=== PATIENT | male | born 1980 | race Asian ===

== ENCOUNTER 2025-01-04 10:44 | Emergency (ER) | payer BC, SELFPAY ==
[2025-01-04 10:45] VITALS: BMI 38.2
[2025-01-04 11:07] VITALS: BP 164/97; PULSE 82; RESP 18; TEMP 37.1; O2SAT 95
--- NOTE | 2025-01-04 11:17 | XR_ITS ---
Examination: Duplex scan of the lower extremity, unilateral left Date and time of exam: January 04, 2025, 1243 hrs. Indications: Left ankle swelling and pain beginning 2 days ago. Technique: Duplex scan of the extremity veins using B-mode/grayscale imaging and Doppler spectral analysis and color flow Attention is directed to internal echogenicity, compression and augmentation involving these veins, color flow assessment, spectral analysis Findings: Major deep venous structures in the extremity demonstrate normal course and caliber. There is no evidence of deep vein thrombosis. Normal color flow and spectral analysis Impression: Negative for DVT..
--- NOTE | 2025-01-04 11:17 | XR_ITS ---
EXAMINATION: Ankle, left 3 views . Technique: Ankle AP, oblique, lateral 3 views Date and time of exam: January 04, 2025, 1204 hrs. Indications: Ankle swelling and pain beginning 2 days ago. Findings: No fracture or dislocation. No cortical bone destruction. Impression: No fracture or dislocation.
[2025-01-04 12:11] LABS: Uric Acid 6.9 mg/dL (3.7-9.2)
[2025-01-04 13:32] VITALS: BP 187/101; PULSE 76; RESP 19; TEMP 36.6; O2SAT 100
[2025-01-04] MEDS: HYDROcodone/APAP 5/325 TABLET 1 TAB PO (14:14)
[2025-01-04] MEDS: KETOROLAC INJ 60 MG/2 ML VIAL 30 MG IM (14:15)
--- NOTE | 2025-01-04 15:16 | PD.EDLOWEX ---
Lower Extremity Injury RME/HPI General Chief Complaint: Extremity Injury, Lower Stated Complaint: POSSIBLE DVT ON L ANKLE & R/O FRACTURE Time Seen by Provider: 01/04/25 10:47 Arrival date/time: 01/04/25 10:44 This is a case of 44-year-old male with no medical history came in in the emergency room due to left ankle pain and swelling for 3 days worsening of the symptoms this patient sought consult to PCP and was sent here for possible DVT patient denies any injury or trauma patient swelling extends to the distal left lower leg no other symptoms noted no redness Limitations: no limitations Related Data Home Medications ?Medication ?Instructions ?Recorded ?Confirmed chlorthalidone 25 mg tablet 25 mg PO DAILY 01/26/23 08/23/23 rosuvastatin 20 mg tablet 20 mg PO QDAY 01/26/23 08/23/23 valsartan 320 mg tablet 320 mg PO DAILY 01/26/23 08/23/23 Previous Rx's ?Medication ?Instructions ?Recorded gabapentin 300 mg capsule 300 mg PO QHS #60 caps 07/09/23 hydrocodone 5 mg-acetaminophen 325 1 tab PO Q8H PRN pain #12 tabs 01/04/25 mg tablet Allergies Allergy/AdvReac Type Severity Reaction Status Date / Time No Known Allergies Allergy Verified 01/04/25 10:48 Review of Systems Review of Systems Systems Reviewed: All systems reviewed, normal except as documented Constitutional Constitutional: Reports system reviewed and no additional complaints, except as documented and Reports as per HPI Cardiovascular Cardiovascular: Reports system reviewed and no additional complaints, except as documented and Reports as per HPI Gastrointestinal Gastrointestinal: Reports system reviewed and no additional complaints, except as documented and Reports as per HPI Musculoskeletal Musculoskeletal: Reports other (Left ankle pain and swelling) Neurologic Neurologic: Reports system reviewed and no additional complaints, except as documented and Reports as per HPI Past Medical History Past Medical History NEUROLOGIC: Negative Neurological Disorders or Seizures CARDIAC: Positive Cardiac Disorders, Hypercholesterolemia and Hypertension; Negative Congestive Heart Failure RESPIRATORY: Positive Asthma and Sleep Apnea; Negative Chronic Obstructive Pulmonary Disease (COPD) GASTROINTESTINAL: Positive Gastrointestinal Disorders (ACID REFLUX, HISTORY OF GALL STONES) GENITOURINARY: Negative Genitourinary Disorders or Renal Disease ENDOCRINE: Positive Diabetes Mellitus Type 2 (NO LONGER THAKING PO MEDS FOR 18 MONTHS); Negative Diabetes Mellitus Type 1 PSYCHO/SOCIAL: Positive Depression OTHER HISTORY: Positive Chicken Pox; Negative Hospitalization, Autoimmune Disease, Blood Transfusions, Anesthesia Reactions or Cancer Family History FAMILY HISTORY: Positive Family Cardiac Disorders (HTN, HLD) Surgical History SURGICAL: Positive Vasectomy Social History SMOKING STATUS: Never smoker ED Exam General Limitations: Present no limitations General appearance: Present alert, in no apparent distress and other (Patient is awake alert oriented not in distress nontoxic looking well-hydrated well-nourished) Head Head exam: Present atraumatic, normocephalic and normal inspection Eye Eye exam: Present normal appearance, PERRL and EOMI ENT ENT exam: Present normal exam, normal oropharynx and mucous membranes moist Neck Neck exam: Present normal inspection, full ROM and trachea midline Chest Chest inspection: Present normal inspection and symmetric chest wall rise Respiratory Respiratory exam: Present normal lung sounds bilaterally; Absent respiratory distress, wheezes, stridor, accessory muscle use or prolonged expiratory phase Cardiovascular Cardiovascular exam: Present regular rate, normal rhythm and normal heart sounds; Absent bradycardia, tachycardia, irregular rhythm, systolic murmur or diastolic murmur Abdominal Exam Abdominal exam: Present soft and normal bowel sounds Extremities Exam Extremities exam: Present normal inspection and full ROM Expanded Lower Extremity Exam Hip/Pelvis exam: Present normal inspection; Absent tenderness or swelling Upper leg exam: Present normal inspection and full ROM; Absent tenderness or swelling Knee exam: Present normal inspection and full ROM; Absent tenderness or swelling Lower leg exam: Present other (Noted mild swelling on the distal left lower leg but no tenderness negative Homans signs negative Lyman signs no calf tenderness) Ankle exam: Present tenderness (Tenderness around the left ankle with moderate swelling no crepitation no deformity no redness ROM limited due to pain pulses were full and equal capillary refill less than 2 seconds sensory and reflex normal) Back Exam Back exam: Present normal inspection and full ROM Neurological Exam Neurological exam: Present alert, oriented X3, CN II-XII intact, normal gait and reflexes normal; Absent motor sensory deficit Psychiatric Psychiatric exam: Present normal affect and normal mood Skin Skin exam: Present warm, dry, intact and normal color Course Quality Measures none Orders Category Date Time Status US venous doppler LE LT Stat Exams 01/04/25 11:17 Completed XR ankle LT 2V Stat Exams 01/04/25 11:17 Completed Uric Acid Stat Lab 01/04/25 11:38 Completed HYDROcodone*/APAP 5/325 [[place] 5/325] Med 01/04/25 13:30 Discontinued 1 tab PO X1 ONE Ketorolac Inj [Toradol Inj] Med 01/04/25 13:30 Discontinued 30 mg IM X1 ONE Vital Signs Vital signs: Vital Signs Temperature 98.7 F 01/04/25 11:07 Pulse Rate 82 01/04/25 11:07 Respiratory Rate 18 01/04/25 11:07 Blood Pressure 164/97 H 01/04/25 11:07 Pulse Oximetry (%) 95 01/04/25 11:07 Oxygen Delivery Method Room Air 01/04/25 11:07 Patient is afebrile not tachycardic not tachypneic BP is 164/97 after giving Toradol and BP here was rechecked and noted to be 135/75 pulse ox is 95% in room air normal Extremity Injury, Lower MDM Narrative MDM Narrative:: This is a case of 44-year-old male with no medical history came in in the emergency room due to left ankle pain and swelling for 3 days worsening of the symptoms this patient sought consult to PCP and was sent here for possible DVT patient denies any injury or trauma patient swelling extends to the distal left lower leg no other symptoms noted no redness physical examination patient is awake alert oriented not in distress nontoxic looking with steady gait patient noted to have a swelling on the distal third left lower leg negative Lyman signs negative Homans signs no calf tenderness patient also noted to have no claudication patient also noted to have left ankle pain and swelling no crepitation no deformity ROM is limited due to pain neurovascular intact x-ray showed no fracture no dislocation ultrasound of the left lower extremity extremities no DVT uric acid is negative at this point patient left ankle pain is unknown possible arthritis patient was need to follow-up with PCP to be referred to Ortho or a lease operator for left ankle pain GONZALES hose stocking was also advised for peripheral edema Patient was discharged with comfortable condition walking with stable gait. Patient verbalized no further complains explained diagnosis and answered patient question. Patient is comfortable with the proposed management plan including the need to follow up with his/her primary care physician and any specialist if applicable Discussed patient for any urgent condition or worsening sx, He/She needed to go to emergency room immediately or call 911. Patient acknowledge the responsibility to follow up as instructed and to monitor her/his symptoms. For any persistence of the symptoms for more than 3-5 days return precaution advised. Discussed the result of the test and was given printed discharge instruction Patient data External records reviewed:: [facility] previous records Clinical information provided by:: patient Social determinants that could affect healthcare access:: none Patient has the following chronic illnesses:: None How is presenting disease/condition affected by chronic disease/condition?: no chronic disease Evaluation data The following diagnostics were reviewed and interpreted by me:: lab results and radiology exam(s) Lab and/or radiology exams considered but not ordered:: Reviewed Interpretation Summary: Reviewed Medications / Prescriptions Medications or Prescriptions considered but not ordered:: Given Medication administrations:: Medication Administration History Discontinued Medications Hydrocodone Bitart/Acetaminophen (Hydrocodone/Apap 5/325 Tablet) 1 tab PO X1 ONE Stop: 01/04/25 13:31 Last Admin: 01/04/25 14:14 Dose: 1 tab Documented By: Ketorolac Tromethamine (Ketorolac Inj 60 Mg/2 Ml Vial) 30 mg IM X1 ONE Stop: 01/04/25 13:31 Last Admin: 01/04/25 14:15 Dose: 30 mg Documented By: Given Consultations Consultation(s) initiated? (list below): No Diagnosis Extremity Injury, Lower Differential Diagnosis: ankle fracture and other (Ankle sprain osteoarthritis gouty arthritis) Most likely diagnosis given after review of the tests above:: Left ankle pain arthritis Admission Indicated Admission indicated?: not indicated Explain why admission is indicated or not indicated:: Not indicated Admission Request Was there a request for admission?: No Admission Attestation Admission request attestation: Not indicated Disposition Plan Disposition Plan: Discharge Discharge Attestation Discharge Attestation: The patient and all family members were given an opportunity to ask questions and understood the discharge instructions. Discharge instructions specifically effects, indications for sooner follow up or return to the emergency department, and the expected course of current diagnosis. Patient condition: Stable Discharge Plan Plan Patient Disposition: HOME (Self Care) Patient condition on transfer: Stable Prescriptions/Referrals Prescriptions/Med Rec: New hydrocodone-acetaminophen 5-325 mg tablet 1 tab PO Q8H MDD maximux 4 tabs per day PRN (Reason: pain) Qty: 12 0RF No Action gabapentin 300 mg capsule 300 mg PO QHS Qty: 60 0RF rosuvastatin 20 mg tablet 20 mg PO QDAY Patient Comments: TAKE 1 TABLET BY MOUTH EVERY DAY chlorthalidone 25 mg tablet 25 mg PO DAILY Patient Comments: TAKE 1 TABLET BY MOUTH IN THE MORNING WITH VALSARTAN valsartan 320 mg tablet 320 mg PO DAILY Patient Comments: TAKE 1 TABLET BY MOUTH EVERY DAY Referrals: Octavio Eric MD [Primary Care Provider] - In 1 week Problem List Clinical Impression: Acute left ankle pain, Arthritis, Edema, peripheral Patient/Caregiver Discharge Instructions Education Materials: What Is Arthritis?, Arthritis: Exercise, ED DAVID Wrap, ED Arthralgia, ED Leg Swelling in a Single Leg, ED RICE Additional Instructions: Follow-up with your primary care physician in 2 days for reevaluation worsening symptoms or any emergent concern call 911 or go to the nearest emergency room take your medication as directed ice pack and warm compress as needed for pain GONZALES hose stocking is advised continue RICE treatment elevate your left lower extremities at all times to decrease swelling is advised if symptoms persist he needs to see an orthopedic surgeon or lease operator for further evaluation and treatment of left ankle pain possible MRI to rule out ligament injuries Print Language: Mosotho Stand Alone Forms: Shasha Award Info., Patient Portal Info Letter PA/PROCESS WORKER Supervising Physician PA/PROCESS WORKER Supervising Physician: DR julio
== END 2025-01-04 15:52 | disposition home or self-care (01) ==
PROVIDERS: Nurse Practitioner Family; Emergency Provider Emergency Medicine; PCP Family Medicine
DX: M19.072 Primary osteoarthritis, left ankle and foot (principal); R60.9 Edema, unspecified
CPT/HCPCS: 36415; 73600; 84550; 93971; 96372; 99283; J1885; A9270

== ENCOUNTER → 2025-01-30 | Outpatient (CLI) | payer BC, SELFPAY ==
--- NOTE | 2025-01-30 16:00 | XR_ITS ---
Examination: MRI left ankle, without contrast Date and time of exam: January 30, 2025 1604 hours INDICATIONS: Left ankle swelling pain and stiffness 3 weeks Technique: Multiple axial sagittal and coronal images of the left ankle have been obtained with the Siemens high-resolution 1.5 Traci MRI scanner. Images obtained include T2-weighted fat-suppressed sagittal sections, TR 3500, TE 46, T2 weighted coronal fat suppressed images, TR 3050, TE 84, T2-weighted transverse fat suppressed images, TR 3260, TE 63, proton density transverse images, TR 4720 TE 46, and T1 weighted coronal images, TR 560, TE 13. Findings: Achilles tendon intact Mild plantar fasciitis. Small ankle effusion No occult fracture bone contusion marrow edema or avascular necrosis Negative for sinus Tarsi syndrome Anterior posterior inferior tibiofibular ligaments intact Moderate strain, axial image 15, posterior talofibular ligament Diffuse mild tendinitis flexor tendons Extensor tendons intact Negative for sinus Tarsi syndrome Dome of the talus is intact IMPRESSION: No occult fracture bone contusion marrow edema or avascular necrosis Mild plantar fasciitis. Moderate strain posterior talofibular ligament. Mild diffuse tendinitis flexor tendons
== END | disposition home or self-care (01) ==
LOC: SMRI 15:37
PROVIDERS: PCP Student in an Organized Health Care Education/Training Program; Referring Provider Student in an Organized Health Care Education/Training Program; Visit Provider Student in an Organized Health Care Education/Training Program
DX: M72.2 Plantar fascial fibromatosis (principal); M77.8 Other enthesopathies, not elsewhere classified; S99.912A Unspecified injury of left ankle, initial encounter; X58.XXXA Exposure to other specified factors, initial encounter
CPT/HCPCS: 73721